=== PATIENT | female | born 1985 | race American Indian/Alaskan Native ===

== ENCOUNTER 2020-10-01 18:01 | Inpatient (IN) | payer OTHER ==
[2020-10-01] MEDS ORDERED: ASPIRIN 81 MG TAB CHEW PO ONE (18:37)
--- NOTE | 2020-10-01 18:40 | Event Note ---
ED Screening Note Date of service: 10/01/20 Time: 18:37 ED Screening Note: 4-year-old female patient with history of BMI >30 presents to the emergency department with complaints of left arm numbness/dysarthria starting 15 minutes prior to arrival and resolving spontaneously after 10 minutes. Patient states she experienced similar symptoms involving the right arm last week. She was admitted to another local hospital and diagnosed with a TIA. She underwent MRI/MRA of the brain as well as US of the carotids without evidence of cerebrovascular disease. She was discharged home, reportedly without any prescriptions. She is not currently under the care of a primary care provider. Currently, symptoms have resolved. She is asymptomatic. Tachycardic and hypertensive in triage. General: Awake, appropriately interactive, no acute distress. Neck: Supple. Full range of motion intact. Cardiovascular: Tachycardic. Normal peripheral perfusion. Pulmonary: No respiratory distress. Patient is speaking normally without use of accessory muscles. Skin: No apparent rashes or lesions. Neurological: No facial asymmetry. Speech is clear. Follows commands. Patient is alert and oriented. Ambulatory without assistance. Strength and sensation intact throughout. Cranial nerves II-XII intact. Musculoskeletal: Moves all four extremities spontaneously with normal range of motion. Psych: Cooperative. Appropriate mood and affect. Stroke alert protocol not initiated due to rapid symptom resolution; not a TPA candidate. I have greeted and performed a focused rapid initial assessment of this patient. A comprehensive ED assessment and evaluation of the patient, analysis of all test results, and completion of the medical decision-making process will be conducted by additional ED providers. This initial assessment/diagnostic orders/clinical plan/treatment(s) is/are subject to change based on patients health status, clinical progression and re-assessment. Further treatment and workup at subsequent clinical provider's discretion. Patient/guardian urged not to elope from the ED as their condition may be serious if not clinically assessed and managed.
[2020-10-01] MEDS ORDERED: ACETAMINOPHEN 325 MG TAB ONE (19:25)
[2020-10-01 19:32] LABS: Basophils # (Auto) 0.1 K/mm3 (0.0-0.1); Basophils % (Auto) 0.6 % (0.0-1.8); Eosinophils # (Auto) 0.2 K/mm3 (0.0-0.4); Eosinophils % (Auto) 2.4 % (0.0-4.3); Hemoglobin 9.7 gm/dl (10.1-14.3); Lymphocytes # (Auto) 2.6 K/mm3 (1.2-5.4); Lymphocytes % (Auto) 32.7 % (13.4-35.0); Mean Corpuscular HGB Conc 34 % (30-34); Mean Corpuscular Volume 93 fl (79-97); Monocytes # (Auto) 0.5 K/mm3 (0.0-0.8); Monocytes % (Auto) 6.3 % (0.0-7.3); Red Blood Count 3.13 M/mm3 (3.65-5.03); Red Cell Distribution Width 18.9 % (13.2-15.2)
[2020-10-01 19:47] LABS: Alanine Aminotransferase 15 units/L (7-56); Albumin 4.1 g/dL (3.9-5); BUN/Creatinine Ratio 11; Blood Urea Nitrogen 13 mg/dL (7-17); Calcium 8.8 mg/dL (8.4-10.2); Hemolysis Index 4
[2020-10-01 20:30] LABS: Platelet Count 19 K/mm3 (140-440)
--- NOTE | 2020-10-01 20:30 | XRay Report ---
CHEST 2 VIEWS INDICATION / CLINICAL INFORMATION: left arm numbness - resolved. COMPARISON: None available. FINDINGS: SUPPORT DEVICES: None. HEART / MEDIASTINUM: No significant abnormality. LUNGS / PLEURA: No significant pulmonary or pleural abnormality. No pneumothorax. ADDITIONAL FINDINGS: No significant additional findings. IMPRESSION: 1. No acute findings. Signer Name: Ty Gonzalez MD Signed: 10/01/2020 8:26 PM Workstation Name: [id number]
--- NOTE | 2020-10-01 20:57 | Emergency Department Report ---
HPI - General Chief Complaint: Neuro Symptoms/Deficit Time Seen by Provider: 10/01/20 20:30 - HPI HPI: This is a 34-year-old female presents to the emergency department with a complaint of some numbness and tingling around her mouth, down her left arm and into the left side of the chest. This was also associated with some difficulty "getting my words out" that started earlier this evening prior to presentation. The patient went to [facility] last week and was admitted for some strokelike symptoms that included similar left-sided numbness and tingling, slurred speech, and at that time she also had some facial droop. The patient's symptoms resolved early on and she had a negative CT scan of the head. She was then admitted to the hospital where she subsequently had an MRI of the brain, ultrasound of her carotids, and was discharged home with the diagnosis of a TIA. At the time of my examination the patient's symptoms have resolved. The patient had some blood work done through triage that shows some anemia with a hemoglobin of about 9.5, and thrombocytopenia with a platelet count of 19. Without prompting, the patient told me that she was told at [facility] that she had low platelets and thinks that she was told it was 7. She denies any spontaneous bleeding but does admit to some intermittent bruising. Currently the patient has a very mild right frontal headache. ED Past Medical Hx - Past Medical History Previous Medical History?: No Additional medical history: TIA 2020 - Social History Smoking Status: Never Smoker Substance Use Type: None - Medications Home Medications: Home Medications Medication Instructions Recorded Confirmed Last Taken Type No Known Home Medications [No 10/01/20 10/01/20 Unknown History Reported Home Medications] ED Review of Systems ROS: Stated complaint: CHEST PAIN/LT ARM TINGLING Other details as noted in HPI Comment: All other systems reviewed and negative Constitutional: denies: chills, fever Eyes: denies: eye pain, vision change ENT: denies: ear pain, throat pain Respiratory: denies: cough, shortness of breath Cardiovascular: chest pain (Left-sided chest paresthesias). denies: edema Gastrointestinal: denies: abdominal pain, vomiting Genitourinary: denies: dysuria, discharge Musculoskeletal: denies: back pain, arthralgia Skin: denies: rash, lesions Neurological: headache, paresthesias Physical Exam - Physical Exam Vital Signs: Vital Signs 10/01/20 18:04 Temperature 98.2 F Pulse Rate 104 H Respiratory 20 Rate Blood Pressure 202/101 O2 Sat by Pulse 99 Oximetry Physical Exam: GENERAL: The patient is well-developed well-nourished. HENT: Normocephalic. Atraumatic. Patient has moist mucous membranes. EYES: Extraocular motions are intact. No nystagmus. NECK: Supple. Trachea is midline. CHEST/LUNGS: Clear to auscultation. There is no respiratory distress noted. HEART/CARDIOVASCULAR: Regular. There is no tachycardia. There is no murmur. ABDOMEN: Abdomen is soft, nontender. Patient has normal bowel sounds. Morbidly obese habitus. SKIN: Skin is warm and dry. NEURO: The patient is awake, alert, and oriented. The patient is cooperative. The patient has no focal neurologic deficits. Normal speech. Cranial nerves II through XII grossly intact. No facial asymmetry. No pronator drift or dysmetria. MUSCULOSKELETAL: There is no tenderness or deformity. There is no limitation range of motion. ED Course Vital Signs 10/01/20 18:04 Temperature 98.2 F Pulse Rate 104 H Respiratory 20 Rate Blood Pressure 202/101 O2 Sat by Pulse 99 Oximetry - Consultations Consultation #1: 10/02/20 01:06 Patient was seen by the telemedicine neurologist, Dr. Willis, and his full consultation and recommendations should either be faxed over to be added to the chart or placed directly into [facility]. He did call me and discussed the case after his telemed evaluation. He feels that the patient symptoms are most consistent with a complex migraine. ED Medical Decision Making - Lab Data Result diagrams: 10/01/20 19:16 10/01/20 19:16 Lab Results 10/01/20 10/01/20 10/01/20 Range/Units 19:16 19:16 19:16 WBC 7.9 (4.5-11.0) K/mm3 RBC 3.13 L (3.65-5.03) M/mm3 Hgb 9.7 L (10.1-14.3) gm/dl Hct 29.0 L (30.3-42.9) % MCV 93 (79-97) fl MCH 31 (28-32) pg MCHC 34 (30-34) % RDW 18.9 H (13.2-15.2) % Plt Count 19 L* (140-440) K/mm3 Lymph % (Auto) 32.7 (13.4-35.0) % [place] % (Auto) 6.3 (0.0-7.3) % Eos % (Auto) 2.4 (0.0-4.3) % Baso % (Auto) 0.6 (0.0-1.8) % Lymph # (Auto) 2.6 (1.2-5.4) K/mm3 [place] # (Auto) 0.5 (0.0-0.8) K/mm3 Eos # (Auto) 0.2 (0.0-0.4) K/mm3 Baso # (Auto) 0.1 (0.0-0.1) K/mm3 Seg Neutrophils % 58.0 (40.0-70.0) % Seg Neutrophils # 4.6 (1.8-7.7) K/mm3 Sodium 133 L (137-145) mmol/L Potassium 4.0 (3.6-5.0) mmol/L Chloride 99.2 (98-107) mmol/L Carbon Dioxide 22 (22-30) mmol/L Anion Gap 16 mmol/L BUN 13 (7-17) mg/dL Creatinine 1.2 (0.6-1.2) mg/dL Estimated GFR > 60 ml/min BUN/Creatinine Ratio 11 % Glucose 94 (65-100) mg/dL Calcium 8.8 (8.4-10.2) mg/dL Phosphorus 3.60 (2.5-4.5) mg/dL Magnesium 2.00 (1.7-2.3) mg/dL Total Bilirubin 1.50 H (0.1-1.2) mg/dL AST 33 (5-40) units/L ALT 15 (7-56) units/L Alkaline Phosphatase 61 (35-129) units/L Total Creatine Kinase 161 H (30-135) units/L Troponin T < 0.010 (0.00-0.029) ng/mL Total Protein 7.4 (6.3-8.2) g/dL Albumin 4.1 (3.9-5) g/dL Albumin/Globulin Ratio 1.2 % TSH (0.270-4.200) mlU/mL Free T4 (0.76-1.46) ng/dL Thyroxine (T4) 7.8 (4.0-12.0) ug/dL HCG, Qual (Negative) 10/01/20 10/01/20 10/01/20 Range/Units 19:16 19:16 20:33 WBC (4.5-11.0) K/mm3 RBC (3.65-5.03) M/mm3 Hgb (10.1-14.3) gm/dl Hct (30.3-42.9) % MCV (79-97) fl MCH (28-32) pg MCHC (30-34) % RDW (13.2-15.2) % Plt Count (140-440) K/mm3 Lymph % (Auto) (13.4-35.0) % [place] % (Auto) (0.0-7.3) % Eos % (Auto) (0.0-4.3) % Baso % (Auto) (0.0-1.8) % Lymph # (Auto) (1.2-5.4) K/mm3 [place] # (Auto) (0.0-0.8) K/mm3 Eos # (Auto) (0.0-0.4) K/mm3 Baso # (Auto) (0.0-0.1) K/mm3 Seg Neutrophils % (40.0-70.0) % Seg Neutrophils # (1.8-7.7) K/mm3 Sodium (137-145) mmol/L Potassium (3.6-5.0) mmol/L Chloride (98-107) mmol/L Carbon Dioxide (22-30) mmol/L Anion Gap mmol/L BUN (7-17) mg/dL Creatinine (0.6-1.2) mg/dL Estimated GFR ml/min BUN/Creatinine Ratio % Glucose (65-100) mg/dL Calcium (8.4-10.2) mg/dL Phosphorus (2.5-4.5) mg/dL Magnesium (1.7-2.3) mg/dL Total Bilirubin (0.1-1.2) mg/dL AST (5-40) units/L ALT (7-56) units/L Alkaline Phosphatase (35-129) units/L Total Creatine Kinase (30-135) units/L Troponin T (0.00-0.029) ng/mL Total Protein (6.3-8.2) g/dL Albumin (3.9-5) g/dL Albumin/Globulin Ratio % TSH 7.280 H (0.270-4.200) mlU/mL Free T4 1.19 (0.76-1.46) ng/dL Thyroxine (T4) (4.0-12.0) ug/dL HCG, Qual Negative (Negative) - EKG Data -: EKG Interpreted by Me EKG shows normal: sinus rhythm, axis, intervals, QRS complexes, ST-T waves Rate: normal - EKG Data When compared to previous EKG there are: previous EKG unavailable Interpretation: normal EKG - Radiology Data Radiology results: report reviewed, image reviewed interpreted by me: Chest x-ray does not show any acute process. There are no pleural effusions, obvious pneumonia and there is no pneumothorax. No significant cardiomegaly.. CT BRAIN: 10/01/2020 INDICATION / CLINICAL INFORMATION: Headache, TIA. Bilateral upper extremity numbness. COMPARISON: None available. FINDINGS: BRAIN/INTRACRANIAL STRUCTURES: Unenhanced CT images of the brain demonstrate no evidence of acute intracranial abnormality. Ventricles and sulci are normal in size and shape. There is no evidence of acute ischemic injury, hemorrhage, or mass. There are no abnormal extra- axial fluid collections. EXTRACRANIAL STRUCTURES: Unremarkable. IMPRESSION: No acute abnormality. - Medical Decision Making This patient presents to the emergency department with a complaint of having some difficulty with her speech and some paresthesia-like discomfort to the left arm and into the left chest. By the time the patient was got to the emergency department her symptoms have resolved. At the time of my examination the patient does not have any focal, motor or sensory deficits and her cranial nerves are intact. She has an NIH stroke scale of 0. For these reasons, and after the patient was examined by the midlevel provider, a code stroke was not initiated. The patient did have a CT scan of the head without contrast that does not show any hemorrhage, large vessel occlusion, or any other acute process. EKG does not show any morphology consistent with ST elevation myocardial infarction or any dysrhythmia. The patient's labs are mostly unremarkable except for significant thrombocytopenia with a platelet count of 19, a hemoglobin of about 9.5, and concern for hypothyroidism with an elevated TSH level. Patient's initial blood pressure was quite elevated upon presentation but it came down to a more reasonable level without any antihypertensive medication given. The patient was seen by the telemedicine neurologist, Dr. Willis, and there should be a full consultation within the chart either faxed over or placed into [facility]. Essentially he told me that he feels it is most consistent with a complex migraine. I did receive the records from the patient's most recent visit to [facility] that includes her CT scan, MRI, neurology consultation and previous labs. The patient did previously have a platelet count of 7. I feel that the patient requires admission for the thrombocytopenia alone and would greatly benefit from a hematology consult. Neurology is also available for consultation if deemed necessary by the hospitalist service. The patient was accepted for admission by the hospitalist, Dr Rojo. - Differential Diagnosis ITP, TTP, TIA, Complex Migraine Critical Care Time: No Critical care attestation.: If time is entered above; I have spent that time in minutes in the direct care of this critically ill patient, excluding procedure time. ED Disposition Clinical Impression: TIA (transient ischemic attack), Thrombocytopenia Hypertension Qualifiers: Hypertension type: unspecified Qualified Code(s): I10 - Essential (primary) hypertension Anemia Qualifiers: Anemia type: unspecified type Qualified Code(s): D64.9 - Anemia, unspecified Disposition: DC-09 OP ADMIT IP TO THIS HOSP Is pt being admited?: Yes Condition: Fair Time of Disposition: 23:14 - Assessment Assessment Interval: Baseline - Level of Consciousness 1a. Level of Consciousness: alert/keenly responsive - LOC Questions 1b. LOC Questions: answers both correctly - LOC Command 1c. LOC Commands: performs tasks correctly - Best Gaze 2. Best Gaze: normal - Visual 3. Visual: no visual loss - Facial Palsy 4. Facial Palsy: normal symmetrical movement - Motor Arm 5a. Motor Arm Left: no drift 5b. Motor Arm Right: no drift - Motor Leg 6a. Motor Leg Left: no drift 6b. Motor Leg Right: no drift - Limb Ataxia 7. Limb Ataxia: absent - Sensory 8. Sensory: normal - Best Language 9. Best Language: no aphasia - Dysarthria 10. Dysarthria: normal - Extinction and Inattention 11. Extinction/Inattention: no abnormality - Scoring Total Score: 0 Stroke Severity: No Stroke Symptoms
--- NOTE | 2020-10-01 21:38 | Cat Scan Report ---
CT BRAIN: 10/01/2020 INDICATION / CLINICAL INFORMATION: Headache, TIA. Bilateral upper extremity numbness. COMPARISON: None available. FINDINGS: BRAIN/INTRACRANIAL STRUCTURES: Unenhanced CT images of the brain demonstrate no evidence of acute int racranial abnormality. Ventricles and sulci are normal in size and shape. There is no evidence of acute ischemic injury, hemorrhage, or mass. There are no abnormal extra-axial fluid collections. EXTRACRANIAL STRUCTURES: Unremarkable. IMPRESSION: No acute abnormality. All CT scans at this location are performed using dose reduction to ALARA by means of automated expos ure control. Signer Name: Rios Roche MD Signed: 10/01/2020 9:34 PM Workstation Name: [id number]
--- NOTE | 2020-10-02 00:12 | History and Physical Report ---
History of Present Illness Date of examination: 10/01/20 Date of admission: 10/01/20 23:14 Chief complaint: TIA Left arm/and left sided numbness History of present illness: 34-year-old female patient with history of BMI >30 presents to the emergency department with complaints of left arm numbness/dysarthria starting 15 minutes prior to arrival and resolving spontaneously after 10 minutes. Patient states she experienced similar symptoms involving the right arm last week. She was admitted to another local hospital and diagnosed with a TIA. She underwent MRI/MRA of the brain as well as US of the carotids without evidence of cerebrovascular disease. She was discharged home, reportedly without any prescriptions. She is not currently under the care of a primary care provider. Currently, symptoms have resolved. She is asymptomatic ED work-up shows WBC 7.9, hemoglobin 9.7, platelets 19, sodium 133, potassium 4.0, creatinine 1.2 TSH 7.2, T4 1.19. Chest x-ray done negative for active finding. CT of the head negative. Patient seen at the bedside patient alert and oriented x3. Patient reported that her speech was weird this morning and she started feeling numbness and tingling on her left middle finger that radiates to her little finger and up to her left left shoulder and left chest chest. She said had speech has improved she still feel mild tingling and numbness on the left side. I reviewed the blood work patient platelet is 19. Patient stated her. This month she had heavy bleeding for 7 days. Patient advised to follow-up with [facility] [employer] post discharge. We will consulted heme oncologist for low platelet. Past History Past Medical History: other (TIA) Past Surgical History: No surgical history Social history: no significant social history, lives with family Family history: no significant family history Medications and Allergies Allergies Allergy/AdvReac Type Severity Reaction Status Date / Time No Known Allergies Allergy Unverified 10/01/20 18:19 Home Medications Medication Instructions Recorded Confirmed Last Taken Type No Known Home Medications [No 10/01/20 10/01/20 Unknown History Reported Home Medications] Review of Systems Constitutional: no anorexia, no lethargy Ears, nose, mouth and throat: no epistaxis Breasts: no discharge Respiratory: no cough, no congestion Gastrointestinal: no melena Genitourinary Female: menorrhagia, abnormal vaginal bleeding Menstruation: no currently menstrual Rectal: no hemorrhoids Musculoskeletal: arm numbness/tingling, muscle weakness, other (left arm/hand numbness/tingling) Integumentary: no rash, no pruritis Neurological: transient paralysis, numbness, change in speech, no head injury Psychiatric: no depression Endocrine: no proptosis Hematologic/Lymphatic: no easy bruising, no easy bleeding Allergic/Immunologic: no urticaria Exam - Constitutional Vitals: Temp Pulse Resp BP Pulse Ox 98.2 F 98 H 16 142/85 100 10/01/20 21:13 10/01/20 21:15 10/01/20 21:15 10/01/20 23:46 10/01/20 23:46 General appearance: Present: mild distress, obese - EENT Eyes: Present: PERRL ENT: hearing intact, clear oral mucosa - Neck Neck: Present: supple, normal ROM - Respiratory Respiratory effort: normal Respiratory: bilateral: CTA - Cardiovascular Heart Sounds: Present: S1 & S2. Absent: rub, click - Extremities Extremities: pulses symmetrical, No edema Peripheral Pulses: within normal limits - Abdominal General gastrointestinal: Present: soft, non-tender, non-distended, normal bowel sounds Female genitourinary: Present: normal - Integumentary Integumentary: Present: clear, warm, dry - Musculoskeletal Musculoskeletal: gait normal, strength equal bilaterally - Psychiatric Psychiatric: appropriate mood/affect, intact judgment & insight, cooperative - Neurologic Neurologic: CNII-XII intact, moves all extremities - Allied Health Allied health notes reviewed: nursing HEART Score - HEART Score Troponin: Troponin T < 0.010 ng/mL (0.00-0.029) 10/01/20 19:16 Results - Labs CBC & Chem 7: 10/01/20 19:16 10/01/20 19:16 Labs: Abnormal lab results 10/01/20 10/01/20 10/01/20 Range/Units 19:16 19:16 19:16 RBC 3.13 L (3.65-5.03) M/mm3 Hgb 9.7 L (10.1-14.3) gm/dl Hct 29.0 L (30.3-42.9) % RDW 18.9 H (13.2-15.2) % Plt Count 19 L* (140-440) K/mm3 Sodium 133 L (137-145) mmol/L Total Bilirubin 1.50 H (0.1-1.2) mg/dL Total Creatine Kinase 161 H (30-135) units/L TSH 7.280 H (0.270-4.200) mlU/mL Assessment and Plan - Patient Problems (1) TIA (transient ischemic attack) Current Visit: Yes Status: Acute Plan to address problem: ? cause r/o CVA CT of the head done-no acute finding Chest x-ray-no acute process (2) Thrombocytopenia Current Visit: Yes Status: Acute Plan to address problem: ? cause-plt 19 on admission-likely 2/2 to ITP Patient admits heavy mentral bleed with her last menses Hemo/oncologist consult Dr Yun-recommended steroid pulse Iron level, ferritin, rect. count, and LDH-f/u with result. Dexamethasone 40mg oral daily times 4 doses (3) Anemia Current Visit: Yes Status: Acute Qualifiers: Anemia type: unspecified type Qualified Code(s): D64.9 - Anemia, unspecified Plan to address problem: Likely 2/2 to iron deficiency Monitor H/H Will transfuse PRBCs if H/H is less than 7 Iron and MVI supplement Iron studies (4) Hypertension Current Visit: Yes Status: Acute Qualifiers: Hypertension type: unspecified Qualified Code(s): I10 - Essential (primary) hypertension Plan to address problem: Monitor blood pressure Resume home antihypertensive PRN Hydralazine (5) DVT prophylaxis Current Visit: Yes Status: Acute Plan to address problem: SCD
[2020-10-02] MEDS ORDERED: SENNOSIDES 8.6 MG TAB PO PRN (00:30)
[2020-10-02] MEDS ORDERED: ACETAMINOPHEN 325 MG TAB PO PRN (00:30)
[2020-10-02] MEDS ORDERED: ALUM-MAG HYDROXIDE-SIMETHICONE 200-200-20MG/5ML ORAL LIQD 30 ML PO PRN (00:30)
[2020-10-02] MEDS ORDERED: MAGNESIUM HYDROXIDE (MOM) ORAL LIQD UDC PO PRN (00:30)
[2020-10-02] MEDS ORDERED: ONDANSETRON 4 MG/2 ML INJ IV PRN (00:30)
[2020-10-02] MEDS ORDERED: traZODone 50 MG TAB PO PRN (00:37)
[2020-10-02] MEDS ORDERED: traMADol 50 MG TAB PO PRN (00:37)
--- NOTE | 2020-10-02 03:21 | Hem/Onc Consultation ---
History of Present Illness - History of Present Illness heme consult prelim televisit to follow 34yo overweight AA woman with h/o heavy menstrual bleeding, now eval for L arm numbness and abnormal speech was seen at another hospital last week with neuro symptoms, felt to have TIA. Brain imaging nl per notes found to have severely low plt count 19 DATA REVIEWED BELOW Brain CT without contrast nl IMP: low plt count likely due to ITP, r/o APL leukemia mild anemia,m r/o iron defic or AIHA neurologic symptoms, cause unknown; doubt clotting PLAN: labs to include fibrinogen, coags, iron testing, LDH, Retic steroid pulse for presumed ITP Active Medications Acetaminophen (Acetaminophen 325 Mg Tab) 650 mg PO Q4H PRN PRN Reason: Pain MILD(1-3)/Fever >100.5/BROOKS Al Hydrox/Mg Hydrox/Simethicone (Alum-Mag Hydroxide-Simethicone [phone]/5ml Oral Liqd 30 Ml) 30 ml PO Q4H PRN PRN Reason: Indigestion Famotidine (Famotidine 20 Mg/2 Ml Inj) 20 mg IV BID ABEL Ferrous Sulfate (Ferrous Sulfate 325 Mg Tab) 325 mg PO BID ABEL Hydralazine HCl (Hydralazine 20 Mg/1 Ml Inj) 5 mg IV Q4HR PRN PRN Reason: Hypertension Magnesium Hydroxide (Magnesium Hydroxide (Mom) Oral Liqd Udc) 30 ml PO Q4H PRN PRN Reason: Constipation Multivitamins (Multivitamins ,Therapeutic Tab) 1 each PO QDAY ABEL Ondansetron HCl (Ondansetron 4 Mg/2 Ml Inj) 4 mg IV Q8H PRN PRN Reason: Nausea And Vomiting Senna (Sennosides 8.6 Mg Tab) 8.6 mg PO Q12HR PRN PRN Reason: Constipation Tramadol HCl (Tramadol 50 Mg Tab) 50 mg PO Q4H PRN PRN Reason: Pain, Moderate (4-6) Trazodone HCl (Trazodone 50 Mg Tab) 50 mg PO QHS PRN PRN Reason: Insomnia Laboratory Last Values WBC 7.9 K/mm3 (4.5-11.0) 10/01/20 19:16 Hgb 9.7 gm/dl (10.1-14.3) L 10/01/20 19:16 Hct 29.0 % (30.3-42.9) L 10/01/20 19:16 Plt Count 19 K/mm3 (140-440) L* 10/01/20 19:16 Lymph % (Auto) 32.7 % (13.4-35.0) 10/01/20 19:16 Seg Neutrophils % 58.0 % (40.0-70.0) 10/01/20 19:16 Total Bilirubin 1.50 mg/dL (0.1-1.2) H 10/01/20 19:16 AST 33 units/L (5-40) 10/01/20 19:16 ALT 15 units/L (7-56) 10/01/20 19:16 Alkaline Phosphatase 61 units/L (35-129) 10/01/20 19:16 Total Creatine Kinase 161 units/L (30-135) H 10/01/20 19:16 HCG, Qual Negative (Negative) 10/01/20 19:16 Past History Past Medical History: other (TIA) Past Surgical History: No surgical history Social history: no significant social history, lives with family Family history: no significant family history Medications and Allergies Allergies Allergy/AdvReac Type Severity Reaction Status Date / Time No Known Allergies Allergy Unverified 10/01/20 18:19 Home Medications Medication Instructions Recorded Confirmed Last Taken Type No Known Home Medications [No 10/01/20 10/01/20 Unknown History Reported Home Medications] Active Meds: Active Medications Acetaminophen (Acetaminophen 325 Mg Tab) 650 mg PO Q4H PRN PRN Reason: Pain MILD(1-3)/Fever >100.5/BROOKS Al Hydrox/Mg Hydrox/Simethicone (Alum-Mag Hydroxide-Simethicone [phone]/5ml Oral Liqd 30 Ml) 30 ml PO Q4H PRN PRN Reason: Indigestion Famotidine (Famotidine 20 Mg/2 Ml Inj) 20 mg IV BID ABEL Ferrous Sulfate (Ferrous Sulfate 325 Mg Tab) 325 mg PO BID ABEL Hydralazine HCl (Hydralazine 20 Mg/1 Ml Inj) 5 mg IV Q4HR PRN PRN Reason: Hypertension Magnesium Hydroxide (Magnesium Hydroxide (Mom) Oral Liqd Udc) 30 ml PO Q4H PRN PRN Reason: Constipation Multivitamins (Multivitamins ,Therapeutic Tab) 1 each PO QDAY ABEL Ondansetron HCl (Ondansetron 4 Mg/2 Ml Inj) 4 mg IV Q8H PRN PRN Reason: Nausea And Vomiting Senna (Sennosides 8.6 Mg Tab) 8.6 mg PO Q12HR PRN PRN Reason: Constipation Tramadol HCl (Tramadol 50 Mg Tab) 50 mg PO Q4H PRN PRN Reason: Pain, Moderate (4-6) Trazodone HCl (Trazodone 50 Mg Tab) 50 mg PO QHS PRN PRN Reason: Insomnia Exam - Constitutional Vitals: Last Vital Signs Temp 98.6 F 10/02/20 01:01 Pulse 108 H 10/02/20 01:01 Resp 20 10/02/20 01:01 BP 153/85 10/02/20 01:01 Pulse Ox 100 10/02/20 01:01 Results - Labs lab Results: Laboratory Results - last 24 hr 10/01/20 10/01/20 10/01/20 19:16 19:16 19:16 WBC 7.9 RBC 3.13 L Hgb 9.7 L Hct 29.0 L MCV 93 MCH 31 MCHC 34 RDW 18.9 H Plt Count 19 L* Lymph % (Auto) 32.7 [place] % (Auto) 6.3 Eos % (Auto) 2.4 Baso % (Auto) 0.6 Lymph # (Auto) 2.6 [place] # (Auto) 0.5 Eos # (Auto) 0.2 Baso # (Auto) 0.1 Seg Neutrophils % 58.0 Seg Neutrophils # 4.6 Sodium 133 L Potassium 4.0 Chloride 99.2 Carbon Dioxide 22 Anion Gap 16 BUN 13 Creatinine 1.2 Estimated GFR > 60 BUN/Creatinine Ratio 11 Glucose 94 Calcium 8.8 Phosphorus 3.60 Magnesium 2.00 Total Bilirubin 1.50 H AST 33 ALT 15 Alkaline Phosphatase 61 Total Creatine Kinase 161 H Troponin T < 0.010 Total Protein 7.4 Albumin 4.1 Albumin/Globulin Ratio 1.2 TSH Free T4 Thyroxine (T4) 7.8 HCG, Qual 10/01/20 10/01/20 10/01/20 19:16 19:16 20:33 WBC RBC Hgb Hct MCV MCH MCHC RDW Plt Count Lymph % (Auto) [place] % (Auto) Eos % (Auto) Baso % (Auto) Lymph # (Auto) [place] # (Auto) Eos # (Auto) Baso # (Auto) Seg Neutrophils % Seg Neutrophils # Sodium Potassium Chloride Carbon Dioxide Anion Gap BUN Creatinine Estimated GFR BUN/Creatinine Ratio Glucose Calcium Phosphorus Magnesium Total Bilirubin AST ALT Alkaline Phosphatase Total Creatine Kinase Troponin T Total Protein Albumin Albumin/Globulin Ratio TSH 7.280 H Free T4 1.19 Thyroxine (T4) HCG, Qual Negative
[2020-10-02] MEDS ORDERED: methylPREDNISolone Sod Succinate 125 MG/2 ML INJ IV SCH (04:00)
[2020-10-02] MEDS ORDERED: hydrALAZINE 20 MG/1 ML INJ IV PRN (04:00)
[2020-10-02 06:35] LABS: Alanine Aminotransferase 15 units/L (7-56); Albumin 3.6 g/dL (3.9-5); Bilirubin,Direct < 0.2 mg/dL (0-0.2); Iron 96 ug/dL (37-170)
[2020-10-02 06:44] LABS: Hematocrit 24.4 % (30.3-42.9); Hemoglobin 8.2 gm/dl (10.1-14.3); Mean Corpuscular HGB Conc 34 % (30-34); Mean Corpuscular Volume 91 fl (79-97); Red Blood Count 2.69 M/mm3 (3.65-5.03); Red Cell Distribution Width 18.4 % (13.2-15.2)
[2020-10-02 06:46] LABS: Iron 96 ug/dL (37-170); Total Iron Binding Capacity 256 mcg/dL (250-450)
[2020-10-02 06:47] LABS: Platelet Count 16 K/mm3 (140-440)
[2020-10-02 06:51] LABS: INR 1.1 (0.87-1.13)
[2020-10-02 06:52] LABS: Partial Thromboplastin Time 38.4 Sec. (24.2-36.6)
--- NOTE | 2020-10-02 08:57 | Hem/Onc Progress Note ---
Subjective Interval history: heme data review 34yo AA woman with h/o heavy menstrual bleeding, now eval for L arm numbness and abnormal speech was seen at another hospital last week with neuro symptoms, felt to have TIA. Brain imaging nl per notes found to have severely low plt count 19 DATA REVIEWED BELOW Brain CT without contrast nl IMP: ITP and autoimmune hemolytic anemia "lower HCT" today could also be hemodilution abn PTT could reflect autoimmune syndrome-r/o anti-cardiolipin ab recent neuro symptoms related to autoimmune syndrome recent bleeding tendency partly due to low plt count PLAN/REC: steroid pulse no transfusions planned today stay in [facility] for ITP/AIHA treatment Active Medications Methylprednisolone Sodium Succinate (Methylprednisolone Sod Succinate 125 Mg/2 Ml Inj) 125 mg IV Q12H ABEL Laboratory Last Values WBC 8.1 K/mm3 (4.5-11.0) 10/02/20 06:38 Hgb 8.2 gm/dl (10.1-14.3) L 10/02/20 06:38 Hct 24.4 % (30.3-42.9) L 10/02/20 06:38 Plt Count 16 K/mm3 (140-440) L* 10/02/20 06:38 Seg Neutrophils % 58.0 % (40.0-70.0) 10/01/20 19:16 PT 14.0 Sec. (12.2-14.9) 10/02/20 05:32 INR 1.10 (0.87-1.13) 10/02/20 05:32 APTT 38.4 Sec. (24.2-36.6) H 10/02/20 05:32 Fibrinogen 439 mg/dl (211-480) 10/02/20 05:32 Iron 96 ug/dL (37-170) 10/02/20 05:32 Iron 96 ug/dL (37-170) 10/02/20 05:32 TIBC 256 mcg/dL (250-450) 10/02/20 05:32 Ferritin 688.8 ng/mL (10.0-200.0) H 10/02/20 05:32 Total Bilirubin 1.10 mg/dL (0.1-1.2) 10/02/20 05:32 Lactate Dehydrogenase 945 units/L (91-180) H 10/02/20 05:32 Retic 9% Objective - Constitutional Vitals: Last Vital Signs Temp 98.8 F 10/02/20 04:35 Pulse 107 H 10/02/20 04:35 Resp 20 10/02/20 04:35 BP 111/56 10/02/20 04:35 Pulse Ox 92 10/02/20 04:35 - Labs Lab Results: Laboratory Results - last 24 hr 10/01/20 10/01/20 10/01/20 19:16 19:16 19:16 WBC 7.9 RBC 3.13 L Hgb 9.7 L Hct 29.0 L MCV 93 MCH 31 MCHC 34 RDW 18.9 H Plt Count 19 L* Lymph % (Auto) 32.7 [place] % (Auto) 6.3 Eos % (Auto) 2.4 Baso % (Auto) 0.6 Lymph # (Auto) 2.6 [place] # (Auto) 0.5 Eos # (Auto) 0.2 Baso # (Auto) 0.1 Seg Neutrophils % 58.0 Seg Neutrophils # 4.6 Percent Retic PT INR APTT Fibrinogen Sodium 133 L Potassium 4.0 Chloride 99.2 Carbon Dioxide 22 Anion Gap 16 BUN 13 Creatinine 1.2 Estimated GFR > 60 BUN/Creatinine Ratio 11 Glucose 94 Calcium 8.8 Phosphorus 3.60 Magnesium 2.00 Iron TIBC Ferritin Total Bilirubin 1.50 H Direct Bilirubin Indirect Bilirubin AST 33 ALT 15 Alkaline Phosphatase 61 Lactate Dehydrogenase Total Creatine Kinase 161 H Troponin T < 0.010 Total Protein 7.4 Albumin 4.1 Albumin/Globulin Ratio 1.2 TSH Free T4 Thyroxine (T4) 7.8 HCG, Qual 10/01/20 10/01/20 10/01/20 19:16 19:16 20:33 WBC RBC Hgb Hct MCV MCH MCHC RDW Plt Count Lymph % (Auto) [place] % (Auto) Eos % (Auto) Baso % (Auto) Lymph # (Auto) [place] # (Auto) Eos # (Auto) Baso # (Auto) Seg Neutrophils % Seg Neutrophils # Percent Retic PT INR APTT Fibrinogen Sodium Potassium Chloride Carbon Dioxide Anion Gap BUN Creatinine Estimated GFR BUN/Creatinine Ratio Glucose Calcium Phosphorus Magnesium Iron TIBC Ferritin Total Bilirubin Direct Bilirubin Indirect Bilirubin AST ALT Alkaline Phosphatase Lactate Dehydrogenase Total Creatine Kinase Troponin T Total Protein Albumin Albumin/Globulin Ratio TSH 7.280 H Free T4 1.19 Thyroxine (T4) HCG, Qual Negative 10/02/20 10/02/20 10/02/20 05:32 05:32 05:32 WBC RBC Hgb Hct MCV MCH MCHC RDW Plt Count Lymph % (Auto) [place] % (Auto) Eos % (Auto) Baso % (Auto) Lymph # (Auto) [place] # (Auto) Eos # (Auto) Baso # (Auto) Seg Neutrophils % Seg Neutrophils # Percent Retic PT 14.0 INR 1.10 APTT 38.4 H Fibrinogen 439 Sodium Potassium Chloride Carbon Dioxide Anion Gap BUN Creatinine Estimated GFR BUN/Creatinine Ratio Glucose Calcium Phosphorus Magnesium Iron 96 TIBC Ferritin Total Bilirubin 1.10 Direct Bilirubin < 0.2 Indirect Bilirubin 0.9 AST 31 ALT 15 Alkaline Phosphatase 53 Lactate Dehydrogenase 945 H Total Creatine Kinase Troponin T Total Protein 7.1 Albumin 3.6 L Albumin/Globulin Ratio 1.0 TSH Free T4 Thyroxine (T4) HCG, Qual 10/02/20 10/02/20 10/02/20 05:32 05:32 06:38 WBC 8.1 RBC 2.69 L Hgb 8.2 L Hct 24.4 L MCV 91 MCH 30 MCHC 34 RDW 18.4 H Plt Count 16 L* Lymph % (Auto) [place] % (Auto) Eos % (Auto) Baso % (Auto) Lymph # (Auto) [place] # (Auto) Eos # (Auto) Baso # (Auto) Seg Neutrophils % Seg Neutrophils # Percent Retic 9.13 H PT INR APTT Fibrinogen Sodium Potassium Chloride Carbon Dioxide Anion Gap BUN Creatinine Estimated GFR BUN/Creatinine Ratio Glucose Calcium Phosphorus Magnesium Iron 96 TIBC 256 Ferritin 688.8 H Total Bilirubin Direct Bilirubin Indirect Bilirubin AST ALT Alkaline Phosphatase Lactate Dehydrogenase Total Creatine Kinase Troponin T Total Protein Albumin Albumin/Globulin Ratio TSH Free T4 Thyroxine (T4) HCG, Qual Medications & Allergies - Medications Allergies/Adverse Reactions: Allergies No Known Allergies Allergy (Unverified 10/01/20 18:19) Home Medications: Home Medications Medication Instructions Recorded Confirmed Last Taken Type No Known Home Medications [No 10/01/20 10/01/20 Unknown History Reported Home Medications] Active Medications: Generic Name Dose Route Start Last Admin Trade Name Freq PRN Reason Stop Dose Admin Acetaminophen 650 mg 10/02/20 00:30 Acetaminophen 325 Mg Tab PO Q4H PRN Pain MILD(1-3)/Fever >100.5/BROOKS Al Hydrox/Mg Hydrox/Simethicone 30 ml 10/02/20 00:30 Alum-Mag Hydroxide-Simethicone [phone]/5ml Oral Liqd 30 Ml PO Q4H PRN Indigestion Famotidine 20 mg 10/02/20 10:00 Famotidine 20 Mg/2 Ml Inj IV BID [facility] Ferrous Sulfate 325 mg 10/02/20 10:00 Ferrous Sulfate 325 Mg Tab PO BID [facility] Hydralazine HCl 5 mg 10/02/20 04:00 Hydralazine 20 Mg/1 Ml Inj IV Q4HR PRN Hypertension Magnesium Hydroxide 30 ml 10/02/20 00:30 Magnesium Hydroxide (Mom) Oral Liqd Udc PO Q4H PRN Constipation Methylprednisolone Sodium Succinate 80 mg 10/02/20 04:00 10/02/20 04:00 Methylprednisolone Sod Succinate 125 Mg/2 Ml Inj IV 10/04/20 03:59 Not Given Q12H [facility] Methylprednisolone Sodium Succinate 125 mg 10/02/20 09:00 Methylprednisolone Sod Succinate 125 Mg/2 Ml Inj IV Q12H [facility] Multivitamins 1 each 10/02/20 10:00 Multivitamins ,Therapeutic Tab PO QDAY [facility] Ondansetron HCl 4 mg 10/02/20 00:30 Ondansetron 4 Mg/2 Ml Inj IV Q8H PRN Nausea And Vomiting Senna 8.6 mg 10/02/20 00:30 Sennosides 8.6 Mg Tab PO Q12HR PRN Constipation Tramadol HCl 50 mg 10/02/20 00:37 Tramadol 50 Mg Tab PO Q4H PRN Pain, Moderate (4-6) Trazodone HCl 50 mg 10/02/20 00:37 Trazodone 50 Mg Tab PO QHS PRN Insomnia
[2020-10-02] MEDS: FAMOTIDINE 20 MG/2 ML INJ IV SCH ×2 (10:00→22:06)
[2020-10-02] MEDS ORDERED: DEXAMETHASONE 4 MG TAB PO SCH (10:00)
[2020-10-02] MEDS: methylPREDNISolone Sod Succinate 125 MG/2 ML INJ IV SCH ×2 (10:00→22:06)
[2020-10-02] MEDS: FERROUS SULFATE 325 MG TAB PO SCH ×2 (10:44→22:06)
[2020-10-02] MEDS: MULTIVITAMINS ,THERAPEUTIC TAB PO SCH (10:44)
--- NOTE | 2020-10-02 13:41 | Progress Note ---
Assessment and Plan Assessment and plan: #Strokelike symptoms CVA as previous MRIs performed in [facility] was negative Monitor for now as symptoms have resolved. Patient refused MRI CTA head and neck negative for any critical stenosis #Thrombocytopenia Possible etiologies-ITP, TTP Platelet count is ~hematology oncology consulted for thrombocytopenia-advised pulse dose steroids Patient is now on Solu-Medrol 125 mg every 12 #Anemia Iron panel, vitamin B12 and folic acid #Morbid obesity Diet and exercise advised #Hypertension Continue home medications #DVT prophylaxis-SCDs only due to thrombocytopenia History Interval history: Patient seen and examined this morning She denies any neurological symptoms Refused MRI Started on steroids by [facility] Hospitalist Physical - Physical exam Narrative exam: VITAL SIGNS: Reviewed. GENERAL: Awake. Obese HEAD: No signs of head trauma. EYES: Pupils are equal. Extraocular motions intact. MOUTH: Oropharynx is normal. NECK: No adenopathy, no JVD. CHEST: Chest with diminished breath sounds bilaterally. No wheezes, rales, or rhonchi. CARDIAC: normal S1 and S2, without murmurs, gallops, or rubs. ABDOMEN: Soft, non tender and non distended. No rebound or guarding, and no masses palpated. Bowel Sounds normal. MUSCULOSKELETAL: No edema NEUROLOGIC EXAM: Alert and oriented x3. No focal neurologic deficits SKIN: No obvious lesions - Constitutional Vitals: Temp Pulse Resp BP Pulse Ox 98.4 F 95 H 20 144/80 98 10/02/20 08:22 10/02/20 08:22 10/02/20 08:22 10/02/20 08:22 10/02/20 08:22 HEART Score - HEART Score Troponin: Troponin T < 0.010 ng/mL (0.00-0.029) 10/01/20 19:16 Results - Labs CBC & Chem 7: 10/02/20 06:38 10/01/20 19:16 Labs: Laboratory Last Values WBC 8.1 K/mm3 (4.5-11.0) 10/02/20 06:38 RBC 2.69 M/mm3 (3.65-5.03) L 10/02/20 06:38 Hgb 8.2 gm/dl (10.1-14.3) L 10/02/20 06:38 Hct 24.4 % (30.3-42.9) L 10/02/20 06:38 MCV 91 fl (79-97) 10/02/20 06:38 MCH 30 pg (28-32) 10/02/20 06:38 MCHC 34 % (30-34) 10/02/20 06:38 RDW 18.4 % (13.2-15.2) H 10/02/20 06:38 Plt Count 16 K/mm3 (140-440) L* 10/02/20 06:38 Lymph % (Auto) 32.7 % (13.4-35.0) 10/01/20 19:16 [place] % (Auto) 6.3 % (0.0-7.3) 10/01/20 19:16 Eos % (Auto) 2.4 % (0.0-4.3) 10/01/20 19:16 Baso % (Auto) 0.6 % (0.0-1.8) 10/01/20 19:16 Lymph # (Auto) 2.6 K/mm3 (1.2-5.4) 10/01/20 19:16 [place] # (Auto) 0.5 K/mm3 (0.0-0.8) 10/01/20 19:16 Eos # (Auto) 0.2 K/mm3 (0.0-0.4) 10/01/20 19:16 Baso # (Auto) 0.1 K/mm3 (0.0-0.1) 10/01/20 19:16 Seg Neutrophils % 58.0 % (40.0-70.0) 10/01/20 19:16 Seg Neutrophils # 4.6 K/mm3 (1.8-7.7) 10/01/20 19:16 Percent Retic 9.13 % (0.78-2.58) H 10/02/20 06:38 PT 14.0 Sec. (12.2-14.9) 10/02/20 05:32 INR 1.10 (0.87-1.13) 10/02/20 05:32 APTT 38.4 Sec. (24.2-36.6) H 10/02/20 05:32 Fibrinogen 439 mg/dl (211-480) 10/02/20 05:32 Sodium 133 mmol/L (137-145) L 10/01/20 19:16 Potassium 4.0 mmol/L (3.6-5.0) 10/01/20 19:16 Chloride 99.2 mmol/L (98-107) 10/01/20 19:16 Carbon Dioxide 22 mmol/L (22-30) 10/01/20 19:16 Anion Gap 16 mmol/L 10/01/20 19:16 BUN 13 mg/dL (7-17) 10/01/20 19:16 Creatinine 1.2 mg/dL (0.6-1.2) 10/01/20 19:16 Estimated GFR > 60 ml/min 10/01/20 19:16 BUN/Creatinine Ratio 11 % 10/01/20 19:16 Glucose 94 mg/dL (65-100) 10/01/20 19:16 Hemoglobin A1c < 4.5 % (4-6) 10/02/20 05:32 Calcium 8.8 mg/dL (8.4-10.2) 10/01/20 19:16 Phosphorus 3.60 mg/dL (2.5-4.5) 10/01/20 19:16 Magnesium 2.00 mg/dL (1.7-2.3) 10/01/20 19:16 Iron 96 ug/dL (37-170) 10/02/20 05:32 Iron 96 ug/dL (37-170) 10/02/20 05:32 TIBC 256 mcg/dL (250-450) 10/02/20 05:32 Ferritin 688.8 ng/mL (10.0-200.0) H 10/02/20 05:32 Total Bilirubin 1.10 mg/dL (0.1-1.2) 10/02/20 05:32 Direct Bilirubin < 0.2 mg/dL (0-0.2) 10/02/20 05:32 Indirect Bilirubin 0.9 mg/dL 10/02/20 05:32 AST 31 units/L (5-40) 10/02/20 05:32 ALT 15 units/L (7-56) 10/02/20 05:32 Alkaline Phosphatase 53 units/L (35-129) 10/02/20 05:32 Lactate Dehydrogenase 945 units/L (91-180) H 10/02/20 05:32 Total Creatine Kinase 161 units/L (30-135) H 10/01/20 19:16 Troponin T < 0.010 ng/mL (0.00-0.029) 10/01/20 19:16 Total Protein 7.1 g/dL (6.3-8.2) 10/02/20 05:32 Albumin 3.6 g/dL (3.9-5) L 10/02/20 05:32 Albumin/Globulin Ratio 1.0 % 10/02/20 05:32 TSH 7.280 mlU/mL (0.270-4.200) H 10/01/20 19:16 Free T4 1.19 ng/dL (0.76-1.46) 10/01/20 20:33 Thyroxine (T4) 7.8 ug/dL (4.0-12.0) 10/01/20 19:16 HCG, Qual Negative (Negative) 10/01/20 19:16 Rodriguez/IV: Voiding Method Toilet Active Medications - Current Medications Current Medications: Generic Name Dose Route Start Last Admin Trade Name Freq PRN Reason Stop Dose Admin Acetaminophen 650 mg 10/02/20 00:30 Acetaminophen 325 Mg Tab PO Q4H PRN Pain MILD(1-3)/Fever >100.5/BROOKS Al Hydrox/Mg Hydrox/Simethicone 30 ml 10/02/20 00:30 Alum-Mag Hydroxide-Simethicone [phone]/5ml Oral Liqd 30 Ml PO Q4H PRN Indigestion Famotidine 20 mg 10/02/20 10:00 10/02/20 10:00 Famotidine 20 Mg/2 Ml Inj IV Not Given BID ABEL Ferrous Sulfate 325 mg 10/02/20 10:00 10/02/20 10:44 Ferrous Sulfate 325 Mg Tab PO 325 mg BID ABEL Administration Hydralazine HCl 5 mg 10/02/20 04:00 Hydralazine 20 Mg/1 Ml Inj IV Q4HR PRN Hypertension Magnesium Hydroxide 30 ml 10/02/20 00:30 Magnesium Hydroxide (Mom) Oral Liqd Udc PO Q4H PRN Constipation Methylprednisolone Sodium Succinate 125 mg 10/02/20 09:00 10/02/20 10:00 Methylprednisolone Sod Succinate 125 Mg/2 Ml Inj IV Not Given Q12H ABEL Multivitamins 1 each 10/02/20 10:00 10/02/20 10:44 Multivitamins ,Therapeutic Tab PO 1 each QDAY ABEL Administration Ondansetron HCl 4 mg 10/02/20 00:30 Ondansetron 4 Mg/2 Ml Inj IV Q8H PRN Nausea And Vomiting Senna 8.6 mg 10/02/20 00:30 Sennosides 8.6 Mg Tab PO Q12HR PRN Constipation Tramadol HCl 50 mg 10/02/20 00:37 Tramadol 50 Mg Tab PO Q4H PRN Pain, Moderate (4-6) Trazodone HCl 50 mg 10/02/20 00:37 Trazodone 50 Mg Tab PO QHS PRN Insomnia
[2020-10-03] MEDS: FERROUS SULFATE 325 MG TAB PO SCH (09:37)
[2020-10-03] MEDS: MULTIVITAMINS ,THERAPEUTIC TAB PO SCH (09:37)
[2020-10-03] MEDS: DOCUSATE SODIUM 100 MG CAP PO SCH ×3 (09:38→21:28)
[2020-10-03] MEDS: methylPREDNISolone Sod Succinate 125 MG/2 ML INJ IV SCH ×3 (09:38→21:28)
[2020-10-03] MEDS: FAMOTIDINE 20 MG/2 ML INJ IV SCH (09:38)
--- NOTE | 2020-10-03 10:22 | Hem/Onc Progress Note ---
Subjective Interval history: 34yo AA woman with h/o heavy menstrual bleeding, now eval for L arm numbness and abnormal speech was seen at another hospital last week with neuro symptoms, felt to have TIA. Brain imaging nl per notes, found to have severely low plt count 19 DATA REVIEWED BELOW Brain CT without contrast nl refused brain MRI victorina neg IMP: now looks like this is TTP PLAN/REC: start FFP infusions cont steroid pulse discuss transfer to tertiary care hosp for possible TTP Laboratory Last Values WBC 8.1 K/mm3 (4.5-11.0) 10/02/20 06:38 Hgb 8.2 gm/dl (10.1-14.3) L 10/02/20 06:38 Hct 24.4 % (30.3-42.9) L 10/02/20 06:38 Plt Count 16 K/mm3 (140-440) L* 10/02/20 06:38 Percent Retic 9.13 % (0.78-2.58) H 10/02/20 06:38 Creatinine 1.2 mg/dL (0.6-1.2) 10/01/20 19:16 Lactate Dehydrogenase 955 units/L (91-180) H 10/02/20 14:53 HCG, Qual Negative (Negative) 10/01/20 19:16 Direct Antiglob Test Negative 10/02/20 15:00 DONAVON, Poly Interpret Negative 10/02/20 15:00 Objective - Constitutional Vitals: Last Vital Signs Temp 98.6 F 10/03/20 07:38 Pulse 91 H 10/03/20 07:38 Resp 19 10/03/20 07:38 BP 139/71 10/03/20 07:38 Pulse Ox 97 10/03/20 07:38 - Labs Lab Results: Laboratory Results - last 24 hr 10/02/20 10/02/20 10/02/20 05:32 14:53 15:00 Hemoglobin A1c < 4.5 Lactate Dehydrogenase 955 H Direct Antiglob Test Negative DONAVON, Poly Interpret Negative Medications & Allergies - Medications Allergies/Adverse Reactions: Allergies No Known Allergies Allergy (Unverified 10/01/20 18:19) Home Medications: Home Medications Medication Instructions Recorded Confirmed Last Taken Type No Known Home Medications [No 10/01/20 10/01/20 Unknown History Reported Home Medications] Active Medications: Generic Name Dose Route Start Last Admin Trade Name Freq PRN Reason Stop Dose Admin Acetaminophen 650 mg 10/02/20 00:30 Acetaminophen 325 Mg Tab PO Q4H PRN Pain MILD(1-3)/Fever >100.5/BROOKS Al Hydrox/Mg Hydrox/Simethicone 30 ml 10/02/20 00:30 Alum-Mag Hydroxide-Simethicone [id number]/5ml Oral Liqd 30 Ml PO Q4H PRN Indigestion Docusate Sodium 100 mg 10/03/20 10:00 10/03/20 09:39 Docusate Sodium 100 Mg Cap PO 100 mg BID ABEL Administration Famotidine 20 mg 10/03/20 22:00 Famotidine 20 Mg Tab PO BID [facility] Ferrous Sulfate 325 mg 10/02/20 10:00 10/03/20 09:37 Ferrous Sulfate 325 Mg Tab PO 325 mg BID ABEL Administration Hydralazine HCl 5 mg 10/02/20 04:00 Hydralazine 20 Mg/1 Ml Inj IV Q4HR PRN Hypertension Magnesium Hydroxide 30 ml 10/02/20 00:30 Magnesium Hydroxide (Mom) Oral Liqd Udc PO Q4H PRN Constipation Methylprednisolone Sodium Succinate 125 mg 10/02/20 09:00 10/03/20 09:38 Methylprednisolone Sod Succinate 125 Mg/2 Ml Inj IV 125 mg Q12H ABEL Administration Multivitamins 1 each 10/02/20 10:00 10/03/20 09:37 Multivitamins ,Therapeutic Tab PO 1 each QDAY [facility] Administration Ondansetron HCl 4 mg 10/02/20 00:30 Ondansetron 4 Mg/2 Ml Inj IV Q8H PRN Nausea And Vomiting Senna 8.6 mg 10/02/20 00:30 Sennosides 8.6 Mg Tab PO Q12HR PRN Constipation Tramadol HCl 50 mg 10/02/20 00:37 Tramadol 50 Mg Tab PO Q4H PRN Pain, Moderate (4-6) Trazodone HCl 50 mg 10/02/20 00:37 Trazodone 50 Mg Tab PO QHS PRN Insomnia
[2020-10-03] MEDS ORDERED: SODIUM CHLORIDE 0.9% 500 ML 500 ML IV NR ×2 (10:33→16:36)
--- NOTE | 2020-10-03 11:22 | Progress Note ---
Assessment and Plan Assessment and plan: #Strokelike symptoms CVA as previous MRIs performed in [facility] was negative Monitor for now as symptoms have resolved. Patient refused MRI CTA head and neck negative for any critical stenosis Could be neurological presentation of TTP #Thrombocytopenia Possible etiologies-ITP, TTP Platelet count is ~hematology oncology consulted for thrombocytopenia-advised pulse dose steroids Continue steroids FFP ordered #Anemia Has high retic count, increased LDH Suspicion of TTP. Peripheral smear to be reviewed Appreciated heme recommendations #Morbid obesity Diet and exercise advised #Hypertension Continue home medications #DVT prophylaxis-SCDs only due to thrombocytopenia History Interval history: 10/02. Patient seen and examined this morning. She denies any neurological symptoms. Refused MRI. Started on steroids by heme 10/03. AM labs not drawn. No neurological signs at this time. TTP also in the differential. Awaiting peripheral smear. Heme following. FFP ordered. Hospitalist Physical - Physical exam Narrative exam: VITAL SIGNS: Reviewed. GENERAL: Awake. Obese HEAD: No signs of head trauma. EYES: Pupils are equal. Extraocular motions intact. MOUTH: Oropharynx is normal. NECK: No adenopathy, no JVD. CHEST: Chest with diminished breath sounds bilaterally. No wheezes, rales, or rhonchi. CARDIAC: normal S1 and S2, without murmurs, gallops, or rubs. ABDOMEN: Soft, non tender and non distended. No rebound or guarding, and no masses palpated. Bowel Sounds normal. MUSCULOSKELETAL: No edema NEUROLOGIC EXAM: Alert and oriented x3. No focal neurologic deficits SKIN: No obvious lesions - Constitutional Vitals: Temp Pulse Resp BP Pulse Ox 97.7 F 89 19 140/85 95 10/03/20 11:14 10/03/20 11:14 10/03/20 11:14 10/03/20 11:14 10/03/20 11:14 HEART Score - HEART Score Troponin: Troponin T < 0.010 ng/mL (0.00-0.029) 10/01/20 19:16 Results - Labs CBC & Chem 7: 10/02/20 06:38 10/01/20 19:16 Labs: Laboratory Last Values WBC 8.1 K/mm3 (4.5-11.0) 10/02/20 06:38 RBC 2.69 M/mm3 (3.65-5.03) L 10/02/20 06:38 Hgb 8.2 gm/dl (10.1-14.3) L 10/02/20 06:38 Hct 24.4 % (30.3-42.9) L 10/02/20 06:38 MCV 91 fl (79-97) 10/02/20 06:38 MCH 30 pg (28-32) 10/02/20 06:38 MCHC 34 % (30-34) 10/02/20 06:38 RDW 18.4 % (13.2-15.2) H 10/02/20 06:38 Plt Count 16 K/mm3 (140-440) L* 10/02/20 06:38 Lymph % (Auto) 32.7 % (13.4-35.0) 10/01/20 19:16 Mccracken % (Auto) 6.3 % (0.0-7.3) 10/01/20 19:16 Eos % (Auto) 2.4 % (0.0-4.3) 10/01/20 19:16 Baso % (Auto) 0.6 % (0.0-1.8) 10/01/20 19:16 Lymph # (Auto) 2.6 K/mm3 (1.2-5.4) 10/01/20 19:16 Mccracken # (Auto) 0.5 K/mm3 (0.0-0.8) 10/01/20 19:16 Eos # (Auto) 0.2 K/mm3 (0.0-0.4) 10/01/20 19:16 Baso # (Auto) 0.1 K/mm3 (0.0-0.1) 10/01/20 19:16 Seg Neutrophils % 58.0 % (40.0-70.0) 10/01/20 19:16 Seg Neutrophils # 4.6 K/mm3 (1.8-7.7) 10/01/20 19:16 Percent Retic 9.13 % (0.78-2.58) H 10/02/20 06:38 PT 14.0 Sec. (12.2-14.9) 10/02/20 05:32 INR 1.10 (0.87-1.13) 10/02/20 05:32 APTT 38.4 Sec. (24.2-36.6) H 10/02/20 05:32 Fibrinogen 439 mg/dl (211-480) 10/02/20 05:32 Sodium 133 mmol/L (137-145) L 10/01/20 19:16 Potassium 4.0 mmol/L (3.6-5.0) 10/01/20 19:16 Chloride 99.2 mmol/L (98-107) 10/01/20 19:16 Carbon Dioxide 22 mmol/L (22-30) 10/01/20 19:16 Anion Gap 16 mmol/L 10/01/20 19:16 BUN 13 mg/dL (7-17) 10/01/20 19:16 Creatinine 1.2 mg/dL (0.6-1.2) 10/01/20 19:16 Estimated GFR > 60 ml/min 10/01/20 19:16 BUN/Creatinine Ratio 11 % 10/01/20 19:16 Glucose 94 mg/dL (65-100) 10/01/20 19:16 Hemoglobin A1c < 4.5 % (4-6) 10/02/20 05:32 Calcium 8.8 mg/dL (8.4-10.2) 10/01/20 19:16 Phosphorus 3.60 mg/dL (2.5-4.5) 10/01/20 19:16 Magnesium 2.00 mg/dL (1.7-2.3) 10/01/20 19:16 Iron 96 ug/dL (37-170) 10/02/20 05:32 Iron 96 ug/dL (37-170) 10/02/20 05:32 TIBC 256 mcg/dL (250-450) 10/02/20 05:32 Ferritin 688.8 ng/mL (10.0-200.0) H 10/02/20 05:32 Total Bilirubin 1.10 mg/dL (0.1-1.2) 10/02/20 05:32 Direct Bilirubin < 0.2 mg/dL (0-0.2) 10/02/20 05:32 Indirect Bilirubin 0.9 mg/dL 10/02/20 05:32 AST 31 units/L (5-40) 10/02/20 05:32 ALT 15 units/L (7-56) 10/02/20 05:32 Alkaline Phosphatase 53 units/L (35-129) 10/02/20 05:32 Lactate Dehydrogenase 955 units/L (91-180) H 10/02/20 14:53 Total Creatine Kinase 161 units/L (30-135) H 10/01/20 19:16 Troponin T < 0.010 ng/mL (0.00-0.029) 10/01/20 19:16 Total Protein 7.1 g/dL (6.3-8.2) 10/02/20 05:32 Albumin 3.6 g/dL (3.9-5) L 10/02/20 05:32 Albumin/Globulin Ratio 1.0 % 10/02/20 05:32 TSH 7.280 mlU/mL (0.270-4.200) H 10/01/20 19:16 Free T4 1.19 ng/dL (0.76-1.46) 10/01/20 20:33 Thyroxine (T4) 7.8 ug/dL (4.0-12.0) 10/01/20 19:16 HCG, Qual Negative (Negative) 10/01/20 19:16 Direct Antiglob Test Negative 10/02/20 15:00 DONAVON, Poly Interpret Negative 10/02/20 15:00 Rodriguez/IV: Voiding Method Toilet Active Medications - Current Medications Current Medications: Generic Name Dose Route Start Last Admin Trade Name Freq PRN Reason Stop Dose Admin Acetaminophen 650 mg 10/02/20 00:30 Acetaminophen 325 Mg Tab PO Q4H PRN Pain MILD(1-3)/Fever >100.5/BROOKS Al Hydrox/Mg Hydrox/Simethicone 30 ml 10/02/20 00:30 Alum-Mag Hydroxide-Simethicone 428-266-42ef/5ml Oral Liqd 30 Ml PO Q4H PRN Indigestion Docusate Sodium 100 mg 10/03/20 10:00 10/03/20 09:39 Docusate Sodium 100 Mg Cap PO 100 mg BID ABEL Administration Famotidine 20 mg 10/03/20 22:00 Famotidine 20 Mg Tab PO BID ABEL Ferrous Sulfate 325 mg 10/02/20 10:00 10/03/20 09:37 Ferrous Sulfate 325 Mg Tab PO 325 mg BID ABEL Administration Hydralazine HCl 5 mg 10/02/20 04:00 Hydralazine 20 Mg/1 Ml Inj IV Q4HR PRN Hypertension Sodium Chloride 500 mls @ 0 mls/hr 10/03/20 10:33 Nacl 0.9% 500 Ml IV 10/03/20 20:00 ONCE NR As Directed Magnesium Hydroxide 30 ml 10/02/20 00:30 Magnesium Hydroxide (Mom) Oral Liqd Udc PO Q4H PRN Constipation Methylprednisolone Sodium Succinate 80 mg 10/03/20 14:00 Methylprednisolone Sod Succinate 125 Mg/2 Ml Inj IV Q8HR ABEL Multivitamins 1 each 10/02/20 10:00 10/03/20 09:37 Multivitamins ,Therapeutic Tab PO 1 each QDAY ABEL Administration Ondansetron HCl 4 mg 10/02/20 00:30 Ondansetron 4 Mg/2 Ml Inj IV Q8H PRN Nausea And Vomiting Senna 8.6 mg 10/02/20 00:30 Sennosides 8.6 Mg Tab PO Q12HR PRN Constipation Tramadol HCl 50 mg 10/02/20 00:37 Tramadol 50 Mg Tab PO Q4H PRN Pain, Moderate (4-6) Trazodone HCl 50 mg 10/02/20 00:37 Trazodone 50 Mg Tab PO QHS PRN Insomnia
[2020-10-03 12:26] LABS: Anisocytosis 1+; Total Cells Counted 100
[2020-10-03 12:27] LABS: Platelet Estimate Consistent w Auto
[2020-10-03 14:10] LABS: Hematocrit 26.8 % (30.3-42.9); Hemoglobin 8.9 gm/dl (10.1-14.3); Mean Corpuscular HGB Conc 33 % (30-34); Mean Corpuscular Volume 92 fl (79-97); Red Blood Count 2.91 M/mm3 (3.65-5.03); Red Cell Distribution Width 18.5 % (13.2-15.2)
[2020-10-03 14:19] LABS: Platelet Count 16 K/mm3 (140-440)
[2020-10-03] MEDS ORDERED: SODIUM CHLORIDE 0.9% 500 ML 500 ML IV SCH (17:00)
[2020-10-03] MEDS: FAMOTIDINE 20 MG TAB PO SCH (21:30)
--- NOTE | 2020-10-03 23:25 | Hem/Onc Progress Note ---
Subjective Interval history: heme f/u 34yo AA woman with recent heavy menstrual bleeding, now eval for L arm numbness and abnormal speech was seen at another hospital last week with neuro symptoms, felt to have TIA. Brain imaging nl per notes, found to have severely low plt count 19 now also hemolytic anemia, victorina neg started steroid pulse and FFP doing well.. 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 PLAN/REC: FFP infusions cont steroid pulse consider transfer to tertiary care hosp explained to pt 30 mins labs to include daily LDH, [id number] Active Medications Methylprednisolone Sodium Succinate (Methylprednisolone Sod Succinate 125 Mg/2 Ml Inj) 80 mg IV Q8HR ABEL Last Admin: 10/03/20 21:28 Dose: 80 mg Documented by: Laboratory Last Values WBC 12.5 K/mm3 (4.5-11.0) H 10/03/20 13:44 Hgb 8.9 gm/dl (10.1-14.3) L 10/03/20 13:44 Hct 26.8 % (30.3-42.9) L 10/03/20 13:44 Plt Count 16 K/mm3 (140-440) L* 10/03/20 13:44 ] Percent Retic 9.13 % (0.78-2.58) H 10/02/20 06:38 Creatinine 1.2 mg/dL (0.6-1.2) 10/01/20 19:16 Lactate Dehydrogenase 1074 units/L (91-180) H 10/03/20 13:44 Direct Antiglob Test Negative 10/02/20 15:00 DONAVON, Poly Interpret Negative 10/02/20 15:00 Objective - Constitutional Vitals: Last Vital Signs Temp 98 F 10/03/20 19:40 Pulse 88 10/03/20 19:40 Resp 20 10/03/20 21:00 BP 147/91 10/03/20 19:40 Pulse Ox 98 10/03/20 21:00 - Labs Lab Results: Laboratory Results - last 24 hr 10/02/20 10/03/20 10/03/20 06:38 13:44 13:44 WBC 8.1 12.5 H RBC 2.69 L 2.91 L Hgb 8.2 L 8.9 L Hct 24.4 L 26.8 L MCV 91 92 MCH 30 31 MCHC 34 33 RDW 18.4 H 18.5 H Plt Count 16 L* 16 L* Add Manual Diff Total Counted 100 Seg Neuts % (Manual) 46.0 Lymphocytes % (Manual) 46.0 H Monocytes % (Manual) 6.0 Eosinophils % (Manual) 1.0 Basophils % (Manual) 1.0 Nucleated RBC % Not Reportable Seg Neutrophils # Man 3.7 Band Neutrophils # 0.0 Lymphocytes # (Manual) 3.7 Abs React Lymphs (Man) 0.0 Monocytes # (Manual) 0.5 Eosinophils # (Manual) 0.1 Basophils # (Manual) 0.1 Metamyelocytes # 0.0 Myelocytes # 0.0 Promyelocytes # 0.0 Blast Cells # 0.0 Pathologist Review WBC Morphology Not Reportable Hypersegmented Neuts Not Reportable Hyposegmented Neuts Not Reportable Hypogranular Neuts Not Reportable Smudge Cells Not Reportable Toxic Granulation Not Reportable Toxic Vacuolation Not Reportable Dohle Bodies Not Reportable Pelger-Huet Anomaly Not Reportable Ramya Rods Not Reportable Platelet Estimate Consistent w auto Clumped Platelets Not Reportable Plt Clumps, EDTA Not Reportable Large Platelets Not Reportable Giant Platelets Not Reportable Platelet Satelliting Not Reportable Plt Morphology Comment Not Reportable RBC Morphology Not Reportable Dimorphic RBCs Not Reportable Polychromasia Not Reportable Hypochromasia Not Reportable Poikilocytosis Not Reportable Anisocytosis 1+ Microcytosis Not Reportable Macrocytosis Not Reportable Spherocytes Not Reportable Pappenheimer Bodies Not Reportable Sickle Cells Not Reportable Target Cells Not Reportable Tear Drop Cells Not Reportable Ovalocytes Not Reportable Helmet Cells Not Reportable Pathak-[place] Bodies Not Reportable [place] Rings Not Reportable Peggy Cells Not Reportable Bite Cells Not Reportable Crenated Cell Not Reportable Elliptocytes Not Reportable Acanthocytes (Spur) Not Reportable Rouleaux Not Reportable Hemoglobin C Crystals Not Reportable Schistocytes Not Reportable Malaria parasites Not Reportable Percent Retic 9.13 H Shar Bodies Not Reportable Hem Pathologist Commnt Sent to pathology Lactate Dehydrogenase 1074 H Blood Type 10/03/20 10/03/20 10/03/20 13:44 14:00 17:10 WBC RBC Hgb Hct MCV MCH MCHC RDW Plt Count Add Manual Diff Complete Total Counted Seg Neuts % (Manual) Lymphocytes % (Manual) Monocytes % (Manual) Eosinophils % (Manual) Basophils % (Manual) Nucleated RBC % Seg Neutrophils # Man Band Neutrophils # Lymphocytes # (Manual) Abs React Lymphs (Man) Monocytes # (Manual) Eosinophils # (Manual) Basophils # (Manual) Metamyelocytes # Myelocytes # Promyelocytes # Blast Cells # Pathologist Review WBC Morphology Hypersegmented Neuts Hyposegmented Neuts Hypogranular Neuts Smudge Cells Toxic Granulation Toxic Vacuolation Dohle Bodies Pelger-Huet Anomaly Ramya Rods Platelet Estimate Clumped Platelets Plt Clumps, EDTA Large Platelets Giant Platelets Platelet Satelliting Plt Morphology Comment RBC Morphology Dimorphic RBCs Polychromasia Hypochromasia Poikilocytosis Anisocytosis Microcytosis Macrocytosis Spherocytes Pappenheimer Bodies Sickle Cells Target Cells Tear Drop Cells Ovalocytes Helmet Cells Pathak[place] Bodies [place] Rings [place] Cells Bite Cells Crenated Cell Elliptocytes Acanthocytes (Spur) Rouleaux Hemoglobin C Crystals Schistocytes Malaria parasites Percent Retic Shar Bodies Hem Pathologist Commnt Lactate Dehydrogenase Blood Type O POSITIVE O POSITIVE Medications & Allergies - Medications Allergies/Adverse Reactions: Allergies No Known Allergies Allergy (Unverified 10/01/20 18:19) Home Medications: Home Medications Medication Instructions Recorded Confirmed Last Taken Type No Known Home Medications [No 10/01/20 10/01/20 Unknown History Reported Home Medications] Active Medications: Generic Name Dose Route Start Last Admin Trade Name Freq PRN Reason Stop Dose Admin Acetaminophen 650 mg 10/02/20 00:30 Acetaminophen 325 Mg Tab PO Q4H PRN Pain MILD(1-3)/Fever >100.5/BROOKS Al Hydrox/Mg Hydrox/Simethicone 30 ml 10/02/20 00:30 Alum-Mag Hydroxide-Simethicone 125-059-71ze/5ml Oral Liqd 30 Ml PO Q4H PRN Indigestion Docusate Sodium 100 mg 10/03/20 10:00 10/03/20 21:28 Docusate Sodium 100 Mg Cap PO 100 mg BID ABEL Administration Famotidine 20 mg 10/03/20 22:00 10/03/20 21:30 Famotidine 20 Mg Tab PO Not Given BID ABEL Hydralazine HCl 5 mg 10/02/20 04:00 Hydralazine 20 Mg/1 Ml Inj IV Q4HR PRN Hypertension Sodium Chloride 500 mls @ 0 mls/hr 10/03/20 16:36 Nacl 0.9% 500 Ml IV 10/03/20 23:59 ONCE NR As Directed Sodium Chloride 500 mls @ 50 mls/hr 10/03/20 17:00 Nacl 0.9% 500 Ml IV DIRECT ABEL Magnesium Hydroxide 30 ml 10/02/20 00:30 Magnesium Hydroxide (Mom) Oral Liqd Udc PO Q4H PRN Constipation Methylprednisolone Sodium Succinate 80 mg 10/03/20 14:00 10/03/20 21:28 Methylprednisolone Sod Succinate 125 Mg/2 Ml Inj IV 80 mg Q8HR ABEL Administration Multivitamins 1 each 10/02/20 10:00 10/03/20 09:37 Multivitamins ,Therapeutic Tab PO 1 each QDAY ABEL Administration Ondansetron HCl 4 mg 10/02/20 00:30 Ondansetron 4 Mg/2 Ml Inj IV Q8H PRN Nausea And Vomiting Senna 8.6 mg 10/02/20 00:30 Sennosides 8.6 Mg Tab PO Q12HR PRN Constipation Tramadol HCl 50 mg 10/02/20 00:37 Tramadol 50 Mg Tab PO Q4H PRN Pain, Moderate (4-6) Trazodone HCl 50 mg 10/02/20 00:37 Trazodone 50 Mg Tab PO QHS PRN Insomnia
[2020-10-04 05:16] LABS: Hematocrit 22.7 % (30.3-42.9); Hemoglobin 7.6 gm/dl (10.1-14.3); Mean Corpuscular HGB Conc 34 % (30-34); Mean Corpuscular Volume 91 fl (79-97); Red Blood Count 2.51 M/mm3 (3.65-5.03); Red Cell Distribution Width 19.1 % (13.2-15.2)
[2020-10-04] MEDS: methylPREDNISolone Sod Succinate 125 MG/2 ML INJ IV SCH ×2 (05:42→13:23)
[2020-10-04 05:47] LABS: Platelet Count 18 K/mm3 (140-440)
[2020-10-04] MEDS: DOCUSATE SODIUM 100 MG CAP PO SCH ×2 (09:06→13:24)
[2020-10-04] MEDS: FAMOTIDINE 20 MG TAB PO SCH (09:06)
[2020-10-04] MEDS: MULTIVITAMINS ,THERAPEUTIC TAB PO SCH (09:06)
--- NOTE | 2020-10-04 10:37 | Electrocardiograph Report ---
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
--- NOTE | 2020-10-04 12:11 | Event Note ---
Date: 10/04/20 Consulted for placement of Vas-Cath for pheresis and patient with TTP. Platelets are currently 18. The patient is and is significantly anxious h owever, after a long conversation, the patient is willing to have a Vas-Cath placed with sedation. Given the fact that the patient is currently eating lunch at time of the discussion, we will plan on placing this first thing tomorrow morning.
--- NOTE | 2020-10-04 12:53 | Discharge Summary ---
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 Patient states she experienced similar symptoms involving the right arm a week prior to presentation. She was admitted to another local hospital [[place]] and diagnosed with a TIA. She underwent MRI/MRA of the brain as well as US of the carotids without evidence of cerebrovascular disease. She was discharged home, reportedly without any prescriptions. She is not currently under the care of a primary care provider. In the ER, her symptoms resolved. ED work-up shows WBC 7.9, hemoglobin 9.7, platelets 19, sodium 133, potassium 4.0, creatinine 1.2 TSH 7.2, T4 1.19. Chest x-ray done negative for active finding. CT of the head negative. Patient seen at the bedside patient alert and oriented x3. Patient reported that her speech was weird this morning and she started feeling numbness and tingling on her left middle finger that radiates to her little finger and up to her left left shoulder and left chest chest. She said had speech has improved she still feel mild tingling and numbness on the left side. I reviewed the blood work patient platelet is 19. Patient stated that this month she had heavy bleeding for 7 days. Due to thrombocytopenia and anemia, hematology, was consulted. Impression is possible ITP. Fibrinogen, coags, iron testing, LDH, reticulocyte count sent. Patient started on pulse steroids 10/03. Hemoglobin dropped. Could be possible with hemodilution but need to rule out autoimmune hemolytic anemia as well. Patient refused brain imaging as she has had one in the past 1 week with that was negative. Labs reviewed. Patient has elevated reticulocyte count, LDH and persistent anemia. Platelets still 16. Possible TTP. Peripheral smear to be reviewed by pathologist 10/04. Peripheral smear showed schistocytes. Patient still on steroid pulse. Started on FFP and has been transfused 6 units. Discussed with hematology oncology who advised transfer for plasmapheresis. Discussed with [place] oncologist and hospitalist who has accepted patient for transfer to [place] for evaluation. Discussed with patient and she agrees. Disposition: - TO HOME OR SELFCARE Final Discharge Diagnosis (Prints w/discharge instructions): Thrombotic thrombocytopenic purpura Time spent for discharge: 45mins Core Measure Documentation - Palliative Care Palliative Care/ Comfort Measures: Not Applicable - Core Measures Any of the following diagnoses?: none Exam - Physical Exam Narrative exam: VITAL SIGNS: Reviewed. GENERAL: Awake. Obese HEAD: No signs of head trauma. EYES: Pupils are equal. Extraocular motions intact. MOUTH: Oropharynx is normal. NECK: No adenopathy, no JVD. CHEST: Chest with diminished breath sounds bilaterally. No wheezes, rales, or rhonchi. CARDIAC: normal S1 and S2, without murmurs, gallops, or rubs. ABDOMEN: Soft, non tender and non distended. No rebound or guarding, and no masses palpated. Bowel Sounds normal. MUSCULOSKELETAL: No edema NEUROLOGIC EXAM: Alert and oriented x3. No focal neurologic deficits SKIN: No obvious lesions - Constitutional Vitals: Temp Pulse Resp BP Pulse Ox 98.1 F 87 18 156/87 96 10/04/20 07:48 10/04/20 07:48 10/04/20 08:23 10/04/20 07:48 10/04/20 08:23 Plan Follow up with: SANTHOSH ZACARIAS MD [Primary Care Provider] - 3-5 Days
[2020-10-04 13:20] VITALS: BP 154/82
[2020-10-04] MEDS ORDERED: SODIUM CHLORIDE 0.9% 500 ML 500 ML IV SCH (14:11)
[2020-10-04 16:23] LABS: Hematocrit 22.8 % (30.3-42.9); Hemoglobin 7.6 gm/dl (10.1-14.3); Mean Corpuscular HGB Conc 33 % (30-34); Mean Corpuscular Volume 93 fl (79-97); Red Blood Count 2.47 M/mm3 (3.65-5.03); Red Cell Distribution Width 19.6 % (13.2-15.2)
[2020-10-04 16:45] LABS: Platelet Count 13 K/mm3 (140-440)
[2020-10-05 00:36] LABS: Anisocytosis 1+; Band Neutrophils # (Manual) 0.1 K/mm3; Total Cells Counted 100
[2020-10-05 00:37] LABS: Platelet Estimate Consistent w Auto
--- NOTE | 2020-10-05 09:43 | Hem/Onc Progress Note ---
Subjective Interval history: 34yo AA woman with recent heavy menstrual bleeding, now eval for L arm numbness and abnormal speech was seen at another hospital last week with neuro symptoms, felt to have TIA. Brain imaging nl per notes, found to have severely low plt count 19 now also hemolytic anemia, victorina neg started steroid pulse and FFP transfusions doing well.. no neuro symptoms now but still low blood counts DATA REVIEWED BELOW blood smear per pathologist: mild-mod schistocytes IMP: presumed TTP not benefitting enough from steroid pulse and FFP hemolytic anemia, victorina neg PLAN/REC: FFP infusions planning transfer to [facility] for plasma exchange discussed dx and prognosis with pt asnd her mother for 30 min Laboratory Last Values WBC 21.6 K/mm3 (4.5-11.0) H 10/04/20 15:33 Hgb 7.6 gm/dl (10.1-14.3) L 10/04/20 15:33 Hct 22.8 % (30.3-42.9) L 10/04/20 15:33 Plt Count 13 K/mm3 (140-440) L* 10/04/20 15:33 Seg Neutrophils % 58.0 % (40.0-70.0) 10/01/20 19:16 Percent Retic 9.13 % (0.78-2.58) H 10/02/20 06:38 Creatinine 1.2 mg/dL (0.6-1.2) 10/01/20 19:16 AST 31 units/L (5-40) 10/02/20 05:32 ALT 15 units/L (7-56) 10/02/20 05:32 Alkaline Phosphatase 53 units/L (35-129) 10/02/20 05:32 Lactate Dehydrogenase 1222 units/L (91-180) H 10/04/20 04:51 Vitamin B12 747.8 pg/mL (211-911) 10/04/20 15:33 DONAVON, Poly Interpret Negative 10/02/20 15:00 Objective - Constitutional Vitals: Last Vital Signs Temp 98 F 10/04/20 13:19 Pulse 73 10/04/20 13:19 Resp 18 10/04/20 08:23 BP 154/82 10/04/20 13:19 Pulse Ox 96 10/04/20 08:23 - Labs Lab Results: Laboratory Results - last 24 hr 10/02/20 10/03/20 10/03/20 06:38 13:44 17:10 WBC RBC Hgb Hct MCV MCH MCHC RDW Plt Count Total Counted 100 Seg Neuts % (Manual) 83.0 H Band Neutrophils % 1.0 Lymphocytes % (Manual) 13.0 L Monocytes % (Manual) 2.0 Basophils % (Manual) 1.0 Nucleated RBC % Not Reportable Seg Neutrophils # Man 10.4 H Band Neutrophils # 0.1 Lymphocytes # (Manual) 1.6 Abs React Lymphs (Man) 0.0 Monocytes # (Manual) 0.3 Eosinophils # (Manual) 0.0 Basophils # (Manual) 0.1 Metamyelocytes # 0.0 Myelocytes # 0.0 Promyelocytes # 0.0 Blast Cells # 0.0 WBC Morphology Not Reportable Not Reportable Hypersegmented Neuts Not Reportable Hyposegmented Neuts Not Reportable Hypogranular Neuts Not Reportable Smudge Cells Not Reportable Toxic Granulation Not Reportable Toxic Vacuolation Not Reportable Dohle Bodies Not Reportable Pelger-Huet Anomaly Not Reportable Ramya Rods Not Reportable Platelet Estimate Consistent w auto Clumped Platelets Not Reportable Plt Clumps, EDTA Not Reportable Large Platelets Not Reportable Giant Platelets Not Reportable Platelet Satelliting Not Reportable Plt Morphology Comment Not Reportable RBC Morphology Not Reportable Dimorphic RBCs Not Reportable Polychromasia Not Reportable Hypochromasia Not Reportable Poikilocytosis Not Reportable Anisocytosis 1+ Microcytosis Not Reportable Macrocytosis Not Reportable Spherocytes Not Reportable Pappenheimer Bodies Not Reportable Sickle Cells Not Reportable Target Cells Not Reportable Tear Drop Cells Not Reportable Ovalocytes Not Reportable Helmet Cells Not Reportable Pathak-[place] Bodies Not Reportable [place] Rings Not Reportable Peggy Cells Not Reportable Bite Cells Not Reportable Crenated Cell Not Reportable Elliptocytes Not Reportable Acanthocytes (Spur) Not Reportable Rouleaux Not Reportable Hemoglobin C Crystals Not Reportable Schistocytes Not Reportable Malaria parasites Not Reportable Shar Bodies Not Reportable Hem Pathologist Commnt No Vitamin B12 Blood Type O POSITIVE 10/04/20 10/04/20 15:33 15:33 WBC 21.6 H RBC 2.47 L Hgb 7.6 L Hct 22.8 L MCV 93 MCH 31 MCHC 33 RDW 19.6 H Plt Count 13 L* Total Counted Seg Neuts % (Manual) Band Neutrophils % Lymphocytes % (Manual) Monocytes % (Manual) Basophils % (Manual) Nucleated RBC % Seg Neutrophils # Man Band Neutrophils # Lymphocytes # (Manual) Abs React Lymphs (Man) Monocytes # (Manual) Eosinophils # (Manual) Basophils # (Manual) Metamyelocytes # Myelocytes # Promyelocytes # Blast Cells # WBC Morphology Hypersegmented Neuts Hyposegmented Neuts Hypogranular Neuts Smudge Cells Toxic Granulation Toxic Vacuolation Dohle Bodies Pelger-Huet Anomaly Ramya Rods Platelet Estimate Clumped Platelets Plt Clumps, EDTA Large Platelets Giant Platelets Platelet Satelliting Plt Morphology Comment RBC Morphology Dimorphic RBCs Polychromasia Hypochromasia Poikilocytosis Anisocytosis Microcytosis Macrocytosis Spherocytes Pappenheimer Bodies Sickle Cells Target Cells Tear Drop Cells Ovalocytes Helmet Cells Pathak-[place] Bodies [place] Rings Peggy Cells Bite Cells Crenated Cell Elliptocytes Acanthocytes (Spur) Rouleaux Hemoglobin C Crystals Schistocytes Malaria parasites Shar Bodies Hem Pathologist Commnt Vitamin B12 747.8 Blood Type Medications & Allergies - Medications Allergies/Adverse Reactions: Allergies No Known Allergies Allergy (Unverified 10/01/20 18:19) Home Medications: Home Medications Medication Instructions Recorded Confirmed Last Taken Type No Known Home Medications [No 10/01/20 10/01/20 Unknown History Reported Home Medications]
[2020-10-05 20:18] LABS: Cardiolipin Ab IgA <11 APL (<=11); Cardiolipin Ab IgG <14 GPL (<=14); Cardiolipin Ab IgM <12 MPL (<=12)
== END 2020-10-04 18:24 | disposition short-term general hospital (02) | DRG 813 ==
LOC: ED 18:01 → 4A 23:14 → OBSVTOIN 10-02 11:41
PROVIDERS: ADMIT Internal Medicine Geriatric Medicine; ATTEND Internal Medicine
PROC: 30233K1 Transfusion of Nonautologous Frozen Plasma into Peripheral Vein, Percutaneous Approach (ICD-10-PCS; principal; 2020-10-03)
DX: D69.49 Other primary thrombocytopenia (principal); G45.9 Transient cerebral ischemic attack, unspecified; Z68.44 Body mass index [BMI] 60.0-69.9, adult; D64.9 Anemia, unspecified; I10 Essential (primary) hypertension; E66.01 Morbid (severe) obesity due to excess calories; E03.9 Hypothyroidism, unspecified; Z71.3 Dietary counseling and surveillance; Z79.899 Other long term (current) drug therapy; Z79.891 Long term (current) use of opiate analgesic
CPT/HCPCS: 36415; 36430; 70450; 71046; 80053; 80076; 82550; 82607; 82728; 83010; 83036; 83540; 83550; 83615; 83735; 84100; 84436; 84439; 84443; 84484; 84703; 85007; 85025; 85027; 85045; 85384; 85610; 85730; 86147; 86880; 86900; 86901; 93005; G0378; J2930; J7040; P9017